=== PATIENT | female | born 1985 | race Caucasian/White ===

== ENCOUNTER 2017-08-01 21:51 | Emergency (ER) | payer MEDICAID, OTHER ==
[~2017-08-01] VITALS: Ht 162.6 cm; Wt 102.1 kg
[2017-08-01 22:00] VITALS: BP_SYST 112
--- NOTE | 2017-08-01 22:00 | NUR ---
Patient triaged and placed in waiting room. VSS and patient appears in no acute distress at this time. Accompanied by friend, awaiting available bed, and MD notified of need for MSE.
--- NOTE | 2017-08-02 01:30 | NUR ---
Patient AAOx4, ambulatory with steady gait. Patient states having numbness to right arm since yesterday which extends from right upper arm to right wrist. Patient states having numbness to right lower leg, but states is able to walk without difficulty. patient has pain sensation present to right upper extremity, states "I'm able to feel pressure, but I feel like I can't feel the texture of some objects". No asymetric arm drop or facial droop noted. Pt denies chest pain and SOB, patient denies any other complaints.
--- NOTE | 2017-08-02 01:35 | NUR ---
ER Dr. Silverio at bedside examining patient.
[2017-08-02 02:46] LABS: BASOPHILS # (AUTO) 0.1 K/uL (0.0-0.2); BASOPHILS % (AUTO) 0.6 % (0.0-2.0); EOSINOPHILS # (AUTO) 0.2 K/uL (0.0-0.4); EOSINOPHILS % (AUTO) 2.1 % (0.0-4.0); HEMATOCRIT 35.5 % (36-48); HEMOGLOBIN 11.4 g/dL (12.0-16.0); LYMPHOCYTES # (AUTO) 2.1 K/uL (1.0-5.5); LYMPHOCYTES % (AUTO) 22.9 % (20.5-51.5); MEAN CORPUSCULAR HEMOGLOBIN 27 pg (27-31); MEAN CORPUSCULAR HGB CONC 32 % (32-36); MEAN CORPUSCULAR VOLUME 84 fL (79.0-98.0); MONOCYTES # (AUTO) 0.6 K/uL (0.0-1.0); MONOCYTES % (AUTO) 6.8 % (1.7-9.3); NEUTROPHILS # (AUTO) 6.3 K/uL (1.8-7.7); NEUTROPHILS % (AUTO) 67.6 % (40.0-70.0); PLATELET COUNT (AUTO) 331 K/uL (130-430); RED BLOOD CELL COUNT(AUTO) 4.24 MIL/uL (4.2-6.2); RED CELL DISTRIBUTION WIDTH 13.5 % (9.0-15.0); WHITE BLOOD COUNT (AUTO) 9.3 K/uL (4.8-10.8)
[2017-08-02 02:51] LABS: CALCIUM 9.2 mg/dL (8.4-11.0); CREATININE 1.05 mg/dL (0.55-1.30); POTASSIUM 3.7 mmol/L (3.5-5.1)
[2017-08-02 02:55] LABS: ALBUMIN 3.1 g/dL (3.4-4.8); TOTAL BILIRUBIN 0.3 mg/dL (0.0-1.0)
[2017-08-02] MEDS ORDERED: NACL 0.9% 1,000 ML IV ONE ×2 (03:00→04:45)
[2017-08-02 03:26] LABS: ERYTHROCYTE SEDIMENTATION RATE 43 MM/HR (0-20)
[2017-08-02] MEDS ORDERED: METF-510 PO (03:29)
--- NOTE | 2017-08-02 03:30 | NUR ---
Patient stable and sleeping, vital signs within therapeutic range. No signs of distress noted. Will continue to monitor.
--- NOTE | 2017-08-02 03:30 | NUR ---
Medication reconciliation completed with information provided by patient. Any prior medication reconciliation on file was reviewed and corrected.
--- NOTE | 2017-08-02 05:30 | NUR ---
Patient stable, no signs of distress noted. Vital signs within therapeutic range. Will continue to monitor.
[2017-08-02 06:56] VITALS: BP_SYST 115
--- NOTE | 2017-08-02 06:56 | NUR ---
Patient given written and verbal discharge instructions and verbalizes understanding. ER MD discussed with patient the results and treatment provided. Patient in stable condition. ID arm band removed. IV catheter removed intact and dressing applied, no active bleeding. Patient educated on pain management and to follow up with PMD. Pain Scale 0/10. Opportunity for questions provided and answered.
== END 2017-08-02 06:56 | disposition home or self-care (01) ==
LOC: SED 21:51
DX: E11.65 Type 2 diabetes mellitus with hyperglycemia (principal); E11.21 Type 2 diabetes mellitus with diabetic nephropathy; R51 Headache
CPT/HCPCS: 36415; 70450; 80053; 81025; 82962; 85025; 85651; 96360; 96361; 99285; J7030

== ENCOUNTER 2017-09-26 09:54 | Emergency (ER) | payer MEDICAID ==
[~2017-09-26] VITALS: Ht 162.6 cm; Wt 102.1 kg
[~2017-09-26 09:54] MED LIST: METF-510 PO
[2017-09-26 09:55] VITALS: BP_SYST 113
[2017-09-26 11:28] VITALS: BP_SYST 115
== END 2017-09-26 11:28 | disposition home or self-care (01) ==
LOC: SED 09:54
DX: J06.9 Acute upper respiratory infection, unspecified (principal); E11.9 Type 2 diabetes mellitus without complications
CPT/HCPCS: 99281

== ENCOUNTER 2018-01-25 06:40 | Emergency (ER) | payer MEDICAID ==
[~2018-01-25] VITALS: Ht 160 cm; Wt 100.2 kg
[2018-01-25 06:45] VITALS: BP_SYST 123
[2018-01-25 07:04] VITALS: BP_SYST 123
== END 2018-01-25 07:04 | disposition home or self-care (01) ==
LOC: SED 06:40
DX: H68.001 Unspecified Eustachian salpingitis, right ear (principal); H66.91 Otitis media, unspecified, right ear; E11.9 Type 2 diabetes mellitus without complications; Z79.899 Other long term (current) drug therapy
CPT/HCPCS: 99283

== ENCOUNTER 2018-01-28 15:02 | Emergency (ER) | payer MEDICAID ==
[~2018-01-28] VITALS: Ht 162.6 cm; Wt 100.2 kg
[2018-01-28 15:08] VITALS: BP_SYST 139
[2018-01-28] MEDS ORDERED: KETOROLAC TROMETHAMINE 60 MG/2 ML VIAL IM ONE (15:30)
[2018-01-28] MEDS ORDERED: NEOMYCIN/POLYMYX B/HYDROCORTISONE 10 ML EAR DROPS.SUSP OT ONE (15:30)
[2018-01-28] MEDS ORDERED: cefTRIAXone 2 GM VIAL IM ONE (16:00)
[2018-01-28] MEDS ORDERED: LIDOCAINE 1%, 20 ML MDV 20 ML ONE (16:08)
[2018-01-28 16:25] VITALS: BP_SYST 128
== END 2018-01-28 16:25 | disposition home or self-care (01) ==
LOC: SED 15:02
DX: H60.91 Unspecified otitis externa, right ear (principal); H66.91 Otitis media, unspecified, right ear; R03.0 Elevated blood-pressure reading, without diagnosis of hypertension; E11.9 Type 2 diabetes mellitus without complications
CPT/HCPCS: 81025; 96372; 99284; J0696; J1885; J2001

== ENCOUNTER 2018-10-10 20:07 | Emergency (ER) | payer MEDICAID ==
[~2018-10-10] VITALS: Ht 160 cm; Wt 103.4 kg
[~2018-10-10 20:07] MED LIST changes: +AMOX-423 PO
[2018-10-10 20:12] VITALS: BP_SYST 121
[2018-10-10 21:09] VITALS: BP_SYST 118
== END 2018-10-10 21:09 | disposition home or self-care (01) ==
LOC: SED 20:07
DX: E11.65 Type 2 diabetes mellitus with hyperglycemia (principal)
CPT/HCPCS: 82962; 99281; 99282

== ENCOUNTER 2018-11-25 08:17 | Emergency (ER) | payer MEDICAID ==
[~2018-11-25] VITALS: Ht 160 cm; Wt 105.2 kg
[2018-11-25 08:23] VITALS: BP_SYST 118
[2018-11-25 09:10] VITALS: BP_SYST 118
== END 2018-11-25 09:10 | disposition home or self-care (01) ==
LOC: SED 08:17
DX: H10.9 Unspecified conjunctivitis (principal); E11.9 Type 2 diabetes mellitus without complications
CPT/HCPCS: 99282